=== PATIENT | female | born 1980 | race Caucasian/White ===

== ENCOUNTER 2016-07-24 17:16 | Emergency (ER) | payer MEDICAID ==
--- NOTE | 2016-07-24 21:05 | ER NURSING DOCUMENTATION ---
Nurse's Notes [facility] Name:Kaley Hanks Age:35 yrs Sex:Female :1980 Arrival Date:07/24/2016 Time:17:16 Bed1 Private MD: Diagnosis:Chronic Neck Pain Presentation: 07/24 17:34 Acuity: MK 4 lc 18:00 Presenting complaint: Patient states: 3 HRS AGO C/O PAIN TO LEFT SHOULDER THAT RADIATES lc TO LEFT HAND, NO TRAUMA. HX OF CHRONIC PAIN TO THAT AREA. TRIED TYLENOL AND THC WITHOUT RELIEF. Transition of care: Home. Acute neurological deficit: none identified. 18:00 Method Of Arrival: Private Vehicle lc Triage Assessment: 18:07 General: Appears uncomfortable, Behavior is anxious, cooperative. Pain: Complains of lc pain in left arm Pain radiates to DOWN LEFT ARM Pain At worst was 8 out of 10 on a pain scale. Quality of pain is described as throbbing. Neuro: Level of Consciousness is awake, alert, Oriented to person, place, time, event. Historical: - Allergies: Pork/Porcine Containing Products; MOST ABX; - Home Meds: 1. Pepcid Oral 2. Robaxin Oral - PMHx: GERD; Migraines; CHRONIC PAIN; ANXIETY; - PSHx: Hysterectomy; Appendectomy; ARM; - Tetanus: < 10 years. - Ebola Screening: : Patient denies travel to an Ebola-affected area in the 21 days before illness onset. No symptoms or risks identified at this time. . - Immunization history: Flu Vaccine < 1 year. - Social history: Smoking status: Patient uses tobacco products, heavy tobacco smoker. Patient uses marijuana. Screenin:09 Infectious Disease Risk None. Abuse screen: Denies threats or abuse. Denies injuries lc from another. Abuse screen: Denies threats or abuse. Nutritional screening: No deficits noted. Assessment: 18:09 See Triage Assessment done by same RN. Neuro: Level of Consciousness is awake, alert, lc Oriented to person, place, time, none. Vital Signs: 17:59 Pulse 78; Resp 16; Temp 99.1(O); Pulse Ox 97% on R/A; Weight 54.43 kg (R); Height 5 ft. arc 7 in. (170.18 cm) (R); Pain 10/10; 18:28 BP 98 / 52; lc 21:03 BP 148 / 66; Pulse 70; Resp 18 S; Temp 97.8(O); Pulse Ox 96% on R/A; Pain 5/10; bw2 17:59 Body Mass Index 18.79 (54.43 kg, 170.18 cm) arc ED Course: 17:17 Patient arrived in ED. ama 17:35 Triage completed. lc 18:00 Amira Urbina RN is Primary Nurse. 18:10 Valuables Remains with patient Patient has correct armband on for positive lc identification. Bed in low position. 18:54 Yael Thomas is Primary Nurse. bw2 20:00 Tariq Kennedy MD is Attending Physician. tl1 20:00 No apparent distress. bw2 Administered Medications: 21:01 Drug: HYDROcodone-acetaminophen (5mg/325 mg) 1-2 tabs 1 tabs; Route: PO; bw2 21:02 Follow up: Response: Pharmacy closed - take home med pack bw2 Outcome: 20:53 Discharge ordered by . tl1 21:03 Discharged to home ambulatory, with family. bw2 21:03 Condition: good 21:03 Discharge Assessment: Patient awake, alert and oriented x 3. No cognitive and/or functional deficits noted. Patient verbalized understanding of disposition instructions. 21:03 Discharge instructions given to patient, Instructed on Demonstrated understanding of medications, Prescriptions given X 2. 21:04 Patient left the ED. bw2 Signatures: Amira Urbina RN RN lc Averdick, Andrew, Reg Reg Tariq Miller MD MD tl1 Nathalia Clifford, Reg Reg Yael Hernandez bw2
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
== END 2016-07-24 21:05 | disposition home or self-care (01) ==
LOC: ER 17:16
DX: M54.2 Cervicalgia (principal); M79.602 Pain in left arm; G89.29 Other chronic pain; Z79.899 Other long term (current) drug therapy
CPT/HCPCS: 99283